=== PATIENT | male | born 1965 | race African-American/Black ===

== ENCOUNTER 2017-07-08 22:31 | Emergency (ER) | payer OTHER ==
[~2017-07-08] VITALS: Ht 172.7 cm; Wt 102.0 kg
[~2017-07-08 22:31] MED LIST: MOTRIN800 MG PO; NORCO 7.5/321 TABLET PO
[2017-07-09 00:44] VITALS: BP 120/74
== END 2017-07-09 00:45 | disposition home or self-care (01) ==
LOC: EME 22:31 → EXP 22:31
DX: S20.219A Contusion of unspecified front wall of thorax, initial encounter (principal); S06.0X0A Concussion without loss of consciousness, initial encounter; V43.52XA Car driver injured in collision with other type car in traffic accident, initial encounter; Y92.410 Unspecified street and highway as the place of occurrence of the external cause; I10 Essential (primary) hypertension; E11.9 Type 2 diabetes mellitus without complications
CPT/HCPCS: 71020; 93005; 99281; 99284